=== PATIENT | male | born 1955 | race Caucasian/White ===

== ENCOUNTER 2021-09-21 11:12 | Emergency (ER) | payer BC, OTHER ==
[2021-09-21 11:29] VITALS: TEMP 98.2; BMI 31.1
[2021-09-21] MEDS ORDERED: BEBTELOVIMAB (EUA) 175 MG/2 ML VIAL IVPUSH ONE (12:59)
[2021-09-21 17:27] VITALS: BP 125/70; PULSE 86
== END 2021-09-21 16:00 | disposition home or self-care (01) ==
LOC: JCOVINFU 11:12
PROC: 3E033GC Introduction of Other Therapeutic Substance into Peripheral Vein, Percutaneous Approach (ICD-10-PCS; principal; 2021-09-21)
DX: U07.1 COVID-19 (principal)
CPT/HCPCS: 99284-25; M0222; Q0222